=== PATIENT | female | born 1980 | race Two or more races ===

== ENCOUNTER → 2023-07-03 | Outpatient (CLI) | payer MEDICAID, BC | END | disposition home or self-care (01) | LOC: LAB 12:32 | PROVIDERS: ATTEND Internal Medicine | DX: Z12.11 Encounter for screening for malignant neoplasm of colon (principal); N92.5 Other specified irregular menstruation | CPT/HCPCS: 82270 ==

== ENCOUNTER → 2023-07-08 | Outpatient (CLI) | payer BC, MEDICAID ==
[2023-07-08 12:06] LABS: Basophils # (auto) 0 10 ^3/uL (0-0.2); Basophils % (auto) 0.1 % (0.0-2.0); Eosinophils # (auto) 0.1 10 ^3/uL (0-0.8); Eosinophils % (auto) 1.6 % (0.0-7.0); Hematocrit 35.3 % (36.0-46.0); Hemoglobin 11.2 g/dL (12.2-16.2); Lymphocytes # (auto) 1.2 10 ^3/uL (0.4-5.4); Lymphocytes % (auto) 30.5 % (10.0-50.0); Mean Corpuscular Hemoglobin 26.3 pg (28.0-32.0); Mean Corpuscular Hgb Conc. 31.8 g/dL (32.0-36.0); Mean Corpuscular Volume 82.7 fL (80.0-100.0); Monocytes # (auto) 0.3 10 ^3/uL (0-1.3); Monocytes % (auto) 7.2 % (0.0-12.0); Neutrophils # (auto) 2.4 10 ^3/uL (1.6-8.6); Neutrophils % (auto) 60.6 % (37.0-80.0); Red Blood Cells 4.27 10^6/uL (4.0-5.20); Red Cell Distribution Width 15.9 % (11.8-14.3); White Blood Cell 3.9 10^3/uL (4.4-10.8)
[2023-07-08 12:18] LABS: Thyroid Stimulating Hormone 1.36 uIU/mL (0.55-4.78)
[2023-07-08 12:21] LABS: Alanine Aminotransferase 17 U/L (7-40); Alkaline Phosphatase 72 U/L (46-116); Anion Gap 8 (5-15); BUN/Creatinine Ratio 12.2 (10.0-20.0); Blood Urea Nitrogen 11 mg/dL (9-23); Carbon Dioxide 27 mmol/L (20-30); Chloride 104 mmol/L (98-107); Glucose 88 mg/dL (74-106); LDL Cholesterol 115 mg/dL (< 100); Potassium 3.9 mmol/L (3.5-5.1); Sodium 139 mmol/L (136-145); Triglycerides 59 mg/dL (< 150)
[2023-07-08 12:22] LABS: Albumin 4.6 g/dL (3.2-4.8); Aspartate Aminotransferase 11 U/L (13-40); Cholesterol 194 mg/dL (< 200); HDL Cholesterol 66 mg/dL (40-59)
[2023-07-08 12:23] LABS: Beta HCG, Quantitative 0.4 mIU/mL (1.5-4.2); Bilirubin, Total 0.8 mg/dL (0.2-1.0); Total Protein 7.6 g/dL (5.7-8.2)
[2023-07-08 13:10] LABS: Folate (Folic Acid) 11.66 ng/mL (>5.38)
[2023-07-08 13:12] LABS: Ferritin 12.1 ng/mL (10-291)
[2023-07-08 13:13] LABS: Follicle Stimulating Hormone 24.12 IU/L (SEE BELOW); Leuteinizing Hormone 15.2 IU/L
[2023-07-09 08:06] LABS: Estradiol 58.3 pg/mL (.); Thyroxine (T4) 7.7 ug/dL (4.5-12.0)
== END | disposition home or self-care (01) ==
LOC: LAB 11:35
PROVIDERS: ATTEND Internal Medicine
DX: N92.5 Other specified irregular menstruation (principal); D64.9 Anemia, unspecified
CPT/HCPCS: 36415; 80053; 80061; 82306; 82607; 82670; 82728; 82746; 83001; 83002; 83540; 83550; 84144; 84436; 84443; 84702; 85025